=== PATIENT | female | born 1950 | race Caucasian/White ===

== ENCOUNTER 2016-11-01 07:21 | Day surgery (SDC) | payer BC ==
--- OUTSIDE RECORDS SUMMARY | 2016-11-01 07:25 | XMS REPORT | Continuity of Care Document ---
:1950 Author Organization [facility] ([facility]) Address [address] [place] [address] Phone [phone] Care Team Providers Name Role Phone Rosalba Larios Primary Care Provider [phone] Source Comments This disclosure is being made pursuant to the Care Everywhere program, applicable federal and state laws, and may not contain all informaitonavailable regarding this patient.[facility] ([facility]) Active Allergies and Adverse Reactions Allergen Noted Date Severity Reactions Comments Penicillins 03/03/2009 Angioedema Current Medications Prescription Sig. Disp. Refills Start Date End Date Status lovaSTATIN (MEVACOR) 40 mg take 40 mg by Active tablet mouth every evening. metFORMIN (GLUCOPHAGE) 500 take 500 mg by Active mg tablet mouth 2 times daily with meals. varenicline (CHANTIX) 1 mg take 1 mg by mouth Active tablet daily. Active Problems Problem Noted Date Diabetes 03/03/2009 Social History Tobacco Use Types Packs/Day Years Used Date Current Every Day Smoker 2 40 Alcohol Use Drinks/Week oz/Week Comments No Last Filed Vital Signs Vital Sign Reading Time Taken Blood Pressure 115/76 03/03/2009 9:34 AM CDT Pulse 78 03/03/2009 9:34 AM CDT Temperature 35.8 C (96.4 F) 03/03/2009 9:34 AM CDT Respiratory Rate - - Height 1.626 m (5' 4") 03/03/2009 9:34 AM CDT Weight 77.293 kg (170 lb 6.4 oz) 03/03/2009 9:34 AM CDT Body Mass Index 29.23 03/03/2009 9:34 AM CDT Oxygen Saturation - - Plan of Care Health Maintenance Due Date Last Done Comments HCV Screening 1950 Hepatitis B Vaccine (1 of 3 - Primary Series) 1950 Tdap Vaccine 1962 DIABETIC: Cholesterol 1969 Diabetic: Hdl 1969 DIABETIC: Hemoglobin A1C 1969 Diabetic: Ldl 1969 DIABETIC: Microalbumin 1969 DIABETIC: Triglycerides 1969 Td Vaccine 1969 Cervical Cancer Screening 1981 Mammogram 1991 Colonoscopy 01/01/2001 Zoster Vaccine 2011 DIABETIC: Foot Exam 02/15/2011 DIABETIC: Retinal Eye Exam 02/15/2011 Osteoporosis Screening (DXA Bone Density) 01/03/2016 Pneumococcal Vaccine (1 of 2 - PCV13) 01/03/2016 Influenza Vaccine: Seasonal (#1) 04/04/2016 Results from Last 3 Months Not on file
--- NOTE | 2016-11-01 07:55 | OR ---
Anesthesia Pre Procedure Eval Pre Procedure Evaluation: Last Vital Signs Temp 36.2 C L 11/01/16 07:32 Pulse 108 H 11/01/16 07:32 Resp 18 11/01/16 07:32 BP 121/69 11/01/16 07:32 Pulse Ox 97 11/01/16 07:32 PRE PROCEDURE EVALUATION:: DATE: 11/01/2016 TIME: 50 INDICATIONS: Radicular low back pain. Bulging disc L5-S1 PAST MEDICAL HISTORY: No previous epidural injections. EXAM: Lungs clear and equal. Heart rate regular. Patient complains of radicular low back pain with pain radiating into left hip and down into left leg. ASSESSMENT OF MEDICAL STATUS: Procedure risks and benefits were explained to and accepted by the patient. No contraindication epidural injection PLANNED PROCEDURE : Fluoroscopy-guided epidural injection at L5-S1. Home Medications: HOME MEDICATIONS Cyclobenzaprine HCl [Flexeril] 10 mg PO TID PRN 10/28/16 [Last Taken 10/31/16] Linagliptin [Tradjenta] 5 mg PO DAILY 10/28/16 [Last Taken 10/31/16] Lovastatin 40 mg PO HS 10/28/16 [Last Taken 10/31/16] Meloxicam [Mobic] 15 mg PO DAILY 10/28/16 [Last Taken 10/31/16] glipiZIDE [Glucotrol Xl] 5 mg PO DAILY@0700 10/28/16 [Last Taken 10/31/16] metFORMIN HCL [Glucophage] 1,000 mg PO BIDWM 10/28/16 [Last Taken 10/31/16]
[2016-11-01] MEDS ORDERED: LIDOCAINE HCL/PF 5 ML VIAL IJ ONE (08:02)
[2016-11-01] MEDS ORDERED: IOPAMIDOL 20 ML VIAL IJ ONE (08:02)
[2016-11-01] MEDS ORDERED: DEXAMETHASONE SOD PHOSPHATE 10 MG/ML VIAL IJ ONE (08:02)
--- NOTE | 2016-11-01 08:17 | OR ---
Anesthesia Procedure Note - Anesthesia Procedure Note Narrative: Vital Signs - Last Taken Temp 36.2 C L 11/01/16 07:32 Pulse 110 H 11/01/16 08:10 Resp 20 11/01/16 08:10 BP 139/80 11/01/16 08:10 Pulse Ox 94 11/01/16 08:10 O2 Oxygen Delivery Method Room Air 11/01/16 08:14 ANESTHESIA PROCEDURE NOTE Date of Procedure: 11/01/2016 Time of procedure: 804. Performed by: Anthony Che CRNA Assistant Sales Manager: None. Preprocedure diagnosis: Radicular low back pain. Bulging disc L5-S1. Post procedure diagnosis: Same. Procedure: Epidural Steroid Injection at L5-S1. Indications: Radicular low back pain. Findings: See below. Details of the procedure: The patient was brought back to operating room #3. The patient was then placed in the prone position. Back was prepped with DuraPrep. Patient was then draped in sterile fashion. Lidocaine 1% was infiltrated to the skin and subcutaneous tissues at the level of the L5-S1 interspace. The epidural space was identified using a 20-gauge Tuohy needle with [id number] technique and fluoroscopic guidance. A total of 3 mL of Isovue-200 was injected in first the lateral and then AP positions to confirm needle placement. Dexamethasone 10 mg + 5 mL of 1% preservative-free lidocaine was administered to the epidural space after negative aspiration for blood and CSF. The Tuohy needle was removed intact. A Band-Aid was applied to the patient's back. The patient was then placed in a[] position for 5 minutes before returning to the ambulatory surgical unit. Total fluoroscopy time was 28.9 seconds. Total m/gy is 12.55 EBL: Minimal. Fluids: N/A. Specimen: N/A. Post procedure condition: The patient tolerated the procedure well. No complications were noted. Thank you for this consultation. Anthony Che CRNA
[2016-11-01 09:01] VITALS: BP 123/72
== END 2016-11-01 07:22 | disposition home or self-care (01) ==
LOC: AMB 07:21
PROVIDERS: ATTEND Student in an Organized Health Care Education/Training Program
PROC: 3E0S3BZ Introduction of Anesthetic Agent into Epidural Space, Percutaneous Approach (ICD-10-PCS; 2016-11-01)
PROC: 3E0S33Z Introduction of Anti-inflammatory into Epidural Space, Percutaneous Approach (ICD-10-PCS; principal; 2016-11-01 08:00)
DX: M51.27 Other intervertebral disc displacement, lumbosacral region (principal)